=== PATIENT | male | born 1940 | race Caucasian/White ===

== ENCOUNTER 2024-07-19 06:18 | Day surgery (SDC) | payer OTHER, BC ==
[2024-07-12 11:39] VITALS: BMI 23.7
[2024-07-19] MEDS ORDERED: KETOROLAC TROMETHAMINE 60 MG/2 ML VIAL ONE (07:20)
[2024-07-19] MEDS ORDERED: VANCOMYCIN 1,000 MG VIAL (RESTRICTED TO ID ONLY) ONE (07:20)
[2024-07-19] MEDS ORDERED: BUPIVACAINE HCL/PF 2.5 MG/ML - 30 ML VIAL IJ ONE (07:20)
[2024-07-19] MEDS ORDERED: ceFAZolin SODIUM 1 GM VIAL ONE ×2 (07:36)
[2024-07-19] MEDS ORDERED: METOCLOPRAMIDE HCL INJECTION 10 MG/2 ML VIAL ONE (07:36)
[2024-07-19] MEDS ORDERED: ONDANSETRON 4 MG/2 ML VIAL ONE (07:36)
[2024-07-19] MEDS ORDERED: SEVOFLURANE 250 ML BTL ONE (07:36)
[2024-07-19] MEDS ORDERED: DEXAMETHASONE SOD PHOSPHATE 4 MG/1 ML VIAL ONE ×2 (07:36→09:01)
[2024-07-19] MEDS ORDERED: SUCCINYLCHOLINE CHLORIDE 200 MG/10 ML SYRINGE ONE (07:37)
[2024-07-19] MEDS ORDERED: MIDAZOLAM HCL 2 MG/2 ML SINGLE DOSE VIAL ONE ×2 (07:39→07:50)
[2024-07-19] MEDS ORDERED: PROPOFOL 60 ML ONE (07:41)
[2024-07-19] MEDS ORDERED: BUPIVACAINE HCL/PF 0.5% (5MG/ML) 10 ML VIAL ONE ×2 (07:50→08:06)
[2024-07-19] MEDS ORDERED: BUPIVACAINE LIPOSOME/PF (EXPAREL) 266 MG/20 ML VIAL ONE (07:50)
[2024-07-19] MEDS ORDERED: ACETAMINOPHEN INJECTION 100 ML ONE (08:06)
[2024-07-19] MEDS ORDERED: FENTANYL CITRATE/PF 50 MCG/ML VIAL ONE (08:07)
[2024-07-19] MEDS ORDERED: TRANEXAMIC ACID 1000 MG/10 ML VIAL ONE ×2 (09:04→11:07)
[2024-07-19] MEDS ORDERED: MAGNESIUM SULF 50% (8.12 MEQ/2 ML-1 GM VIAL) ONE (09:27)
[2024-07-19] MEDS ORDERED: PHENYLEPHRINE HCL 10 MG/1 ML SINGLE DOSE VIAL ONE (09:30)
[2024-07-19] MEDS: VANCOMYCIN 1,000 MG VIAL (RESTRICTED TO ID ONLY) IVPB ONE ×2 (10:15→11:15)
[2024-07-19] MEDS: KETOROLAC TROMETHAMINE 30 MG/1 ML VIAL IM ONE (10:58)
[2024-07-19] MEDS: BUPIVACAINE HCL/PF 0.25% (2.5MG/ML) 10 ML VIAL IJ ONE (10:58)
[2024-07-19] MEDS ORDERED: ONDANSETRON 4 MG/2 ML VIAL IVPUSH PRN ×2 (11:19→11:21)
[2024-07-19] MEDS ORDERED: ACETAMINOPHEN 325 MG TABLET (FP) PO PRN (11:19)
[2024-07-19] MEDS ORDERED: MAG HYDROX/AL HYDROX/SIMETH 30 ML UNIT-DOSE CUP PO PRN (11:21)
[2024-07-19] MEDS ORDERED: MAGNESIUM HYDROX 2400MG/30ML ORAL SUSPENSION 30 ML CUP PO PRN (11:21)
[2024-07-19] MEDS ORDERED: ALBUTEROL SO4 HFA INHALER IH PRN (11:24)
[2024-07-19] MEDS ORDERED: LACTATED RINGERS SOLUTION 1,000 ML IV SCH (11:30)
[2024-07-19] MEDS ORDERED: SODIUM CHLORIDE 1,000 ML IV SCH (11:30)
[2024-07-19] MEDS: CEFAZOLIN 2 GM in DEXTROSE 5%-WATER - 100 ML IVPB ONE (14:06)
[2024-07-19] MEDS: ACETAMINOPHEN 1000 MG/100 ML BAG IVPB SCH (17:19)
[2024-07-19] MEDS: CEFAZOLIN SODIUM 2 GM in DEXTROSE 5%-WATER 100 ML IVPB SCH (17:19)
[2024-07-19] MEDS: oxyCODONE HCL 5 MG TABLET PO PRN ×2 (17:21→21:17)
[2024-07-19] MEDS: MONTELUKAST NA 10 MG TABLET PO SCH (21:11)
[2024-07-19] MEDS: ATORVASTATIN CA 20 MG TABLET (FP) PO SCH (21:11)
[2024-07-19] MEDS: ASCORBIC ACID 500 MG TABLET (FP) PO SCH (21:11)
[2024-07-19] MEDS: ASPIRIN 81 MG CHEWABLE TABLETS PO SCH (21:11)
[2024-07-19] MEDS: CELECOXIB 100 MG CAPSULE PO SCH (21:11)
[2024-07-19] MEDS: FAMOTIDINE 20 MG TABLET PO SCH (21:11)
[2024-07-19] MEDS: SENNOSIDES/DOCUSATE COMBO (SENNA PLUS) TABLET (UD) PO SCH (21:11)
[2024-07-19] MEDS: BUDESONIDE/FORMETEROL FUMARATE 160/4.5 mcg INHALER IH SCH (21:12)
[2024-07-19] MEDS ORDERED: PATIENT'S OWN MEDICATION (NON-FORMULARY) (Azelastine Hcl [Azelastine Hcl] 137 MCG/0.137 ML NS SCH (22:00)
[2024-07-20 06:45] VITALS: RESP 20
[2024-07-20 08:48] LABS: HEMATOCRIT 39.5 % (35.4-49); HEMOGLOBIN 12.8 G/dL (11.7-16.9); MCH 31.9 pg (25.7-33.7); MCHC 32.5 g/dl (32.0-35.9); MEAN CELL VOLUME 98.2 fl (80-96); PLATELET COUNT 166.7 10^3/uL (134-434); RBC 4.02 10^6/uL (4.00-5.60); RDW 14.2 % (11.9-15.9); WHITE BLOOD COUNT 14.7 10^3/uL (4.0-10.8)
[2024-07-20] MEDS ORDERED: PATIENT'S OWN MEDICATION (NON-FORMULARY) (Cetirizine Hcl [Zyrtec] 10 MG Tablet) PO SCH (10:00)
[2024-07-20] MEDS: LISINOPRIL 10 MG TABLET PO SCH (11:37)
[2024-07-20] MEDS: ESCITALOPRAM OXALATE 10 MG TABLET PO SCH (11:38)
[2024-07-20] MEDS: LORATADINE 10 MG TABLET PO SCH (11:38)
[2024-07-20] MEDS: MULTIVITAMINS (DAILY MVI) TABLET (FP) PO SCH (11:38)
[2024-07-20] MEDS: DEXAMETHASONE 4 MG TABLET (FP) PO ONE (12:32)
[2024-07-20] MEDS: FLUTICASONE PROP 0.05% 16 GM NASAL SPRAY NS SCH (12:33)
[2024-07-20 13:07] VITALS: BP 132/72; PULSE 86; TEMP 97.7
[2024-07-20] MEDS ORDERED: NAPHAZOLINE/PHENIRAMINE OPHTHALMIC 15 ML BOTTLE OU SCH (14:00)
== END 2024-07-20 14:32 | disposition home or self-care (01) ==
LOC: FASUSAT 06:18 → FM/S 13:45 → FASUSAT 07-20 14:32
PROVIDERS: ATTEND Student in an Organized Health Care Education/Training Program
PROC: 0SRD0JA Replacement of Left Knee Joint with Synthetic Substitute, Uncemented, Open Approach (ICD-10-PCS; principal; 2024-07-19 09:28)
DX: M17.12 Unilateral primary osteoarthritis, left knee (principal)
CPT/HCPCS: 20985; 27447; C1776; S2900; 36415; 73560-TC-LT-FY; 85027; 94760; 97116-GP; 97162-GP; J0131